=== PATIENT | female | born 1995 | race Caucasian/White ===

== ENCOUNTER 2017-06-30 20:36 | Emergency (ER) | payer MEDICAID ==
[~2017-06-30] VITALS: Ht 157.5 cm; Wt 65.0 kg
[2017-06-30 22:04] LABS: CLARITY URINE CLEAR (CLEAR); COLOR URINE YELLOW (YELLOW); GLUCOSE URINE NEGATIVE (NEGATIVE); KETONES URINE NEGATIVE (NEGATIVE); LEUKOCYTE ESTERASE URINE 1+ (NEGATIVE); NITRITE URINE NEGATIVE (NEGATIVE); OCCULT BLOOD URINE NEGATIVE (NEGATIVE); PROTEIN URINE NEGATIVE (NEGATIVE); SPECIFIC GRAVITY URINE 1.018 (1.005-1.030); UROBILINOGEN URINE 0.2 E.U./dL (0.2-1.0)
[2017-06-30] MEDS ORDERED: ACETAMINOPHEN 325MG TABLET PO ONE (23:00)
[2017-06-30 23:02] LABS: BASOPHILS % 0.5 % (0.0-2.0); EOSINOPHILS % 4.3 % (0.0-5.0); HEMOGLOBIN. 13.7 g/dL (12.0-16.0); LYMPHOCYTES % 26.8 % (20.0-50.0); MEAN CORPUSCULAR HEMOGLOBIN 29.1 pg (28.0-32.0); MEAN CORPUSCULAR VOLUME 87.3 fL (81.0-99.0); MEAN PLATELET VOLUME 8.3 fl (7.4-10.4); NEUTROPHILS % 63.4 % (40.0-76.0); PLATELET 217 x1000/uL (130-400); RED CELL DISTRIBUTION WIDTH 13.1 % (11.6-14.6)
[2017-06-30 23:06] LABS: CHLORIDE 106 mEq/L (98-107)
[2017-06-30 23:14] LABS: CARBON DIOXIDE 27 mEq/L (21-32)
[2017-06-30 23:16] LABS: B-HCG QUANTITATIVE < 1 mIU/mL (<3)
[2017-06-30 23:45] VITALS: BP 117/65
== END 2017-06-30 23:46 | disposition home or self-care (01) ==
LOC: ER 20:36
DX: N39.0 Urinary tract infection, site not specified (principal); G40.909 Epilepsy, unspecified, not intractable, without status epilepticus
CPT/HCPCS: 36415; 80053; 81001; 81025; 84702; 85025; 99284

== ENCOUNTER 2018-03-31 20:22 | Emergency (ER) | payer MEDICAID ==
[~2018-03-31] VITALS: Ht 157.5 cm; Wt 68.0 kg
[2018-04-01] MEDS ORDERED: IBUPROFEN 800MG TABLET PO ONE (00:45)
[2018-04-01 02:35] VITALS: BP 122/77
== END 2018-04-01 02:44 | disposition home or self-care (01) ==
LOC: ER 20:22
DX: S83.92XA Sprain of unspecified site of left knee, initial encounter (principal); X50.0XXA Overexertion from strenuous movement or load, initial encounter; Y93.89 Activity, other specified; Y92.89 Other specified places as the place of occurrence of the external cause
CPT/HCPCS: 29505; 73562; 81025; 99284